=== PATIENT | female | born 1980 | race Caucasian/White ===

== ENCOUNTER 2019-09-08 14:26 | Outpatient (REF) | payer MEDICAID, SELFPAY ==
[2019-09-08 21:18] LABS: HGB 14.4 g/dL (12.0-15.5); Mean Corp. HGB Concentration 33.5 g/dL (32.0-36.0); Mean Corpuscular Hemoglobin 33.5 pg (27.0-33.0); Mean Platelet Volume 9.2 fL (8.0-11.0); Platelet Count 335 x1000/uL (130-400); RBC Distribution Width 12.5 % (11.7-14.6); White Blood Cell Count 8.33 k/cumm (4.4-10.8)
[2019-09-08 21:54] LABS: ALT 32 U/L (14-59); AST 13 U/L (15-37); Albumin 4.2 g/dL (3.4-5.0); Alkaline Phosphatase 53 U/L (46-116); BUN 10 mg/dL (7-18); Bilirubin, Total 0.5 mg/dL (0.2-1.0); CREATININE 0.66 mg/dL (0.55-1.02); Chloride 101 mmol/L (98-107); Glucose 81 mg/dL (74-106); Hemoglobin A1C 5.3 % (3.8-5.6); Sodium 136 mmol/L (136-145); TSH (W/Ref FT4) 0.72 uIU/mL (0.36-3.74); Total Protein 7.5 g/dL (6.4-8.2)
[2019-09-11 09:19] LABS: Folate 9.2 ng/mL (See Note)
[2019-09-11 09:20] LABS: Vitamin B12 334 pg/mL (211-911)
== END 2019-09-08 14:46 ==
LOC: NCHCN 14:26
PROVIDERS: PCP Nurse Practitioner Family; Visit Provider Family Medicine
DX: N92.0 Excessive and frequent menstruation with regular cycle (principal); N92.6 Irregular menstruation, unspecified; E66.9 Obesity, unspecified; D75.89 Other specified diseases of blood and blood-forming organs
CPT/HCPCS: 80053; 85027; 82607; 82746; 83036; 84443

== ENCOUNTER 2021-10-30 12:28 | Outpatient (REF) | payer MEDICAID, SELFPAY ==
--- NOTE | 2021-10-30 12:00 | SKI_PTH ---
PATIENT: Nely Sage LOC: [facility]#:[id number] AGE/SX: 40/F ROOM: RE10/30/[address]: Ligia Driver : 1980 BED: DIS: 10/30/2021 SPEC #: [id number] RECD: 10/31/21 12:40 STATUS: NASEEM MEDEROS #: [id number] DEBRA: 10/30/21 12:[address]: Ligia Lemus DEPT: Surgical Specimen RECD BY: Taylor Porras Tissues: 1 - SKIN BIOPSY(SHAVE/PUNCH) Procedures: SKIN LEVEL 4 Comments: [id number]
== END 2021-10-30 12:29 | disposition home or self-care (01) ==
LOC: NCHCN 12:28
PROVIDERS: PCP Nurse Practitioner Family; Visit Provider Nurse Practitioner Family
DX: L85.8 Other specified epidermal thickening (principal); L57.8 Other skin changes due to chronic exposure to nonionizing radiation
CPT/HCPCS: 88305

== ENCOUNTER 2023-12-02 12:16 | Outpatient (REF) | payer MEDICAID, SELFPAY ==
--- NOTE | 2023-12-02 13:30 | PAPFT_PTH ---
PATIENT: Nely Sage LOC: [facility]#:[id number] AGE/SX: 43/F ROOM: RE12/02/[address]: Ligia Driver : 1980 BED: DIS: 12/02/2023 SPEC #: [id number] RECD: 12/03/23 13:16 STATUS: NASEEM MEDEROS #: [id number] DEBRA: 12/02/23 13:[address]: Ligia Lemus DEPT: [facility] Cytology RECD BY: Taylor Porras Tissues: 1 - CX/ENDOCX FOR PAP SMEARS Procedures: PAP THIN PREP/UVM Screening HPV DNA PROBE Comments: [id number] (HPV 16 & 18/45)
--- OUTSIDE RECORDS SUMMARY | 2023-12-03 12:18 | XMS_ITS | Encounter Summary ---
Author Organization [facility] [place] [facility] Address [address] [place] [address] Care Team Providers Care Labor Delivery Specialist Name Role Phone Unavailable Primary Care Provider Unavailabl e Encounter Details Date Type Department Care Team (Late st Contact Info) Description 12/05/2009 Abstract [facility] Plastic, Reconstructive & Cosmetic Surgery - [address], [address] [place] [address] No Pcp, Md Social History Tobacco Use Types Packs/Day Years Used Date Smoking Tobacco: Never Assessed Sex and Gender Information Value Date Recorded Sex Assigned at Not on file Gender Identity Female 11/06/2022 12:47 EDT Sexual Orientation Not on file documented as of this encounter Plan of Treatment Not on file documented as of this encounter Visit Diagnoses Not on filedocumented in this encounter Historical Medications * This list may reflect changes made after this encounter. Medication Sig Dispensed Refills Start Date End Date FLUTICASONE/SALMETEROL (ADVAIR DISKUS INHL) Inhale as directed as needed. added in this encounter
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
--- OUTSIDE RECORDS SUMMARY | 2023-12-03 12:18 | XMS_ITS | Encounter Summary ---
Author Organization [facility] Address [address] [place] [address] Care Team Providers Care Barrel Stave Inspector Name Role Phone EricaGraham Sukumar BEEF SPECIALIST Primary Care Provider [phone] Encounter Details Date Type Department Care Team (Late st Contact Info) Description 08/28/2013 Historical Results Only [facility] - [facility] - Main [place] [address] [place] [address] Honey Hernández MD [address] [place] [address], [address] [place] [address] Social History Tobacco Use Types Packs/Day Years Used Date Smoking Tobacco: Never Assessed Sex and Gender Information Value Date Recorded Sex Assigned at Not on file Gender Identity Female 11/06/2022 12:47 EDT Sexual Orientation Not on file documented as of this encounter Plan of Treatment Not on file documented as of this encounter Procedures Procedure Name Priority Date/Time Associated Diagnosis Comments PAP TEST Routine 08/28/2013 13:12 EDT documented in this encounter Results * PAP TEST (08/28/2013 13:12 EDT) 08/28/2013 13:1 2 EDT 08/28/2013 13:12 EDT Narrative [facility] - 09/01/2013 16:20 EDT ----- ------- Name: KALYANI FITZPATRICK ?: 80 ?Age/Sex: 38/F ?Unit#: [id number] ? Loc: AGO ? Status: REG CLI ?? Reg Date: 08/28/13 ? Pt.Phone Number: ? ----- ------- Specimen: [id number] ?STATUS: SOUT ?Spec Date:08/28/13 ? Physician Copies: ?Edgar,Honey MD ?? Tissues: ? Cervical/Endo Pap ?Dinah Ventura CPT: 86043 ?? Units: ??1 ----- ------- ? CYTOLOGY DIAGNOSIS SPECIMEN ADEQUACY: ?Satisfactory for evaluation. Transformation zone component present. GENERAL CATEGORIZATION: ?Negative for Intraepithelial Lesion or Malignancy DESCRIPTIVE DIAGNOSIS: ? Negative for Intraepithelial Lesion or Malignancy. ----- ------- ?HPV DNA RESULTS ?? 08/28/13 1326 HPV DNA RESULT ??NEG ? Negative for HPV types 16, 18, 31, 33, 35, 39, 45, 51, 52, ? 56, 58, 59, 66, 68. ? Method: Cervista HPV HR (High Risk) DNA test. ----- ------- ORDER QUERIES: LMP: 06/28/13- ? Y Post ? N ??PREVIOUS ATYPICAL: N BCP/HRT? N Rad Rx? N IUD? N ??PAP PLUS HPV? Y ??REFLEX TO HR-HPV IF ASCUS N REFLEX TO HPV 16/18 IF HPV POS/PAP NEG N HPV REGARDLESS? N ??RFLX HPV IF LSIL ?? Signed Rasta Nair CT(ASCP) 09/01/13 By the signature above, the attending physician certifies that he/she has personally conducted a gross and/or microscopic examination of the described specimens and rendered or confirmed the above diagnosis. Test Performed by [facility], [address] [place] [address] Window Glass Cutter Off: Jamilah Castillo MD PHD ----- ------- Honey Hernández MD PATHOLOGY ORDERABLES [facility] documented in this encounter Visit Diagnoses Not on filedocumented in this encounter Care Teams Barrel Stave Inspector Relationship Specialty Start Date End Date Graham Maldonado FNP [address] [place] [address] DR CARVER [address] [place] [phone] PCP - General 11/05/13 10/10/21 documented as of this encounter
--- OUTSIDE RECORDS SUMMARY | 2023-12-03 12:18 | XMS_ITS | Encounter Summary ---
Author Organization [facility] Address [address] [place] [address] Care Team Providers Care Nib Assembler Name Role Phone Unavailable Primary Care Provider Unavailabl e Encounter Details Date Type Department Care Team (Late st Contact Info) Description 10/09/2012 Results Only [facility] Laboratory Services - [facility] [address] [place], [place] [address] Ambrose Zhu, DENTON [address] [place] [id number] Social History Tobacco Use Types Packs/Day Years Used Date Smoking Tobacco: Never Assessed Sex and Gender Information Value Date Recorded Sex Assigned at Not on file Gender Identity Female 11/06/2022 12:47 EDT Sexual Orientation Not on file documented as of this encounter Plan of Treatment Not on file documented as of this encounter Procedures Procedure Name Priority Date/Time Associated Diagnosis Comments PAP TEST- RESULT ONLY Routine 10/09/2012 0:00 EDT documented in this encounter Results * PAP TEST- RESULT ONLY (10/09/2012 0:00 EDT) Pathology Report: CYTOPATHOLOGY REPORT Reports generated via electronic interface contain original data; however they are lacking the format of the original report. Caution should be taken when reading/interpreti ng unformatted reports. Name: ? KALYANI FITZPATRICK ? Accession #: ? [id number] ? : ? 1980 (Age: 31) ??F ?Collect Date: ? 10/09/2012 ? Location: ? [facility] ? Receive Date: ? 10/13/2012 ? Provider: AMBROSE ZHU SUPPORT SERVICES MANAGER Copy to: ? Final Report SPECIMEN ADEQUACY ? Satisfactory for Evaluation - transformation zone component present GENERAL CATEGORIZATION ? Negative for Intraepithelial Lesion or Malignancy INTERPRETATION ? Shift in greg present suggestive of bacterial vaginosis. Last Menstrual Period: 09/26/12 Specimen/Source: ??Pap Test, Endocervix, ThinPrep Imaging System with manual evaluation Document reviewed and electronically signed by: ? ALESSANDRO Jeff(ASCP) ? Report ??Date: 10/17/2012 15:09 HPV with Pap Test ? Date Ordered: ? 10/17/2012 ? Status: ?? Signed Out ?Date Complete: ? 10/20/2012 ? By: ??System Interface ? Date Reported: ? 10/20/2012 ? Interpretation RESULT: Negative for HPV. No E6 or E7 mRNA is detected from HPV types 16,18,31,33,35, 39,45,51,52,56,58, 59,66, and 68 by reservoir caretaker mediated amplification. Comments Document reviewed and electronically signed by: ? System Interface ? Report date: 10/20/2012 By the signature above, the attending physician certifies that he/she has personally conducted a gross and/or microscopic examination of the described specimens and rendered or confirmed the above diagnosis. End of Report [facility] 10/09/2012 10/13/2012 Ambrose Zhu SUPPORT SERVICES MANAGER PATHOLOGY ORDERAB LES Performing Organization Address City/State/[facility] Co de Phone Number [facility] [address] [place] [address] documented in this encounter Visit Diagnoses Not on filedocumented in this encounter
--- OUTSIDE RECORDS SUMMARY | 2023-12-03 12:18 | XMS_ITS | Encounter Summary ---
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 Required Specialty Diagnoses / Procedures Referred By Contac t Referred To Contact Diagnoses Pelvic and perineal pain Left ovarian cyst Procedures US PELVIS TRANSABDOMINAL AND TRANSVAGINAL COMPLETE WITH LIMITED DOPPLER Matt Mcconnell MD [address] [place] [address] [facility] Radiology Referral ID Status Reason Start Date Expiration Date Visits Requested Visits Authorized [id number] Authorization Not Required 3 1 1 Reason for Visit * 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 Required Specialty Diagnoses / Procedures Referred By Contac t Referred To Contact Diagnoses Pelvic and perineal pain Left ovarian cyst Procedures US PELVIS TRANSABDOMINAL AND TRANSVAGINAL COMPLETE WITH LIMITED DOPPLER Matt Mcconnell MD [address] [place] [address] [facility] Radiology Referral ID Status Reason Start Date Expiration Date Visits Requested Visits Authorized [id number] Authorization Not Required 3 1 1 Encounter Details Date Type Department Care Team (Latest Contact Info) Description 04/02/2023 12:28 EST - 04/02/2023 23:59 EST Hospital [facility] - [facility] [address] [place] [address] [phone] Pelvic and perineal pain; Left ovarian cyst Discharge Disposition: Home or Self Care Social History Tobacco Use Types Packs/Day Years Used Date Smoking Tobacco: Every Day Cigarettes Passive Smoke Exposure: Never Smokeless Tobacco: Never Sex and Gender Information Value Date Recorded Sex Assigned at Not on file Gender Identity Female 11/06/2022 12:47 EDT Sexual Orientation Not on file documented as of this encounter Medications at Time of Discharge Medication Sig Dispensed Refills Start Date End Date albuterol 90 mcg/actuation inhaler Inhale 2 Puffs as directed every 4 hours. citalopram (CELEXA) 10 mg tablet Take 1 Tablet by mouth daily. fluticasone propionate (FLOVENT) 110 mcg/actuation inhaler Inhale 1 Puff as directed 2 times daily. FLUTICASONE/SALMETEROL (ADVAIR DISKUS INHL) Inhale as directed as needed. documented as of this encounter Discharge Disposition Disposition Code Departure Means Destination Home or Self Care documented in this encounter Plan of Treatment Not on file documented as of this encounter Procedures Procedure Name Priority Date/Time Associated Diagnosis Comments US PELVIS TRANSABDOMINAL AND TRANSVAGINAL COMPLETE WITH LIMITED DUPLEX STAT 04/02/2023 13:14 EST Pelvic and perineal pain Left ovarian cyst documented in this encounter Results * US PELVIS TRANSABDOMINAL AND TRANSVAGINAL COMPLETE WITH LIMITED DOPPLER (04/02/2023 13:14 EST) Anatomical Region Laterality Modality Pelvis, Body Ultrasound 04/02/2023 13:2 4 EST Impressions 04/02/2023 13:24 EST 1. Left adnexal cyst, 3.3 cm long axis, likely physiologic. 2. No concerning adnexal mass, no ovarian torsion. 3. Small uterine fibroid. [id number] Narrative 04/02/2023 13:24 EST US PELVIS TRANSABDOMINAL AND TRANSVAGINAL COMPLETE WITH LIMITED DOPPLER ??04/02/2023 1:00 PM SIGNS AND SYMPTOMS/COMMENTS: R/O Torsion; ct abd/pel showed 3cm left ovarian cyst;R10.2:Pelvic and perineal pain;N83.202:Left ovarian cyst COMPARISON: No prior imaging at this institution, no outside imaging made available at time of dictation.. GRAYSCALE: Technique: Grayscale ultrasound of the pelvis was performed, first transabdominally, and then transvaginally. Findings: LMP: Not listed Uterus: The anteverted uterus measures 9.6 x 4.1 x 6.6 cm in size. Small intramural hypoechoic nodule anterior body, video series #170, frame #76, approximately 1 cm. Endometrium: The hyperechoic endometrium measures 1.1 cm in double endometrial stripe thickness, which is within normal limits, measurement not including trace fluid within endometrial cavity, see sagittal series 170, frame 58... Right ovary: The right ovary measures 4.0 x 1.8 x 2.5 cm in size, for an estimated right ovarian volume of 9 mL. Scattered small follicles, no adnexal mass. Left ovary: The left ovary measures 5.2 x 2.0 x 4.2 cm in size, for an estimated left ovarian volume of 22.5 mL. There is a anechoic cyst measuring 3.3 x 2.4 x 2.4 cm Cervix: Small nabothian cysts. Free fluid: Other Findings: None. DOPPLER: Indication for Doppler: Rule out pelvic pathology Technique: Color and spectral Doppler ultrasound of the pelvis was performed. Findings: Right ovary: Arterial and venous Doppler waveforms and color flow are present in the right ovary. Left ovary: Arterial and venous Doppler waveforms and color flow are present in the left ovary. Procedure Note Pritesh Garrison MD - 04/02/2023 US PELVIS TRANSABDOMINAL AND TRANSVAGINAL COMPLETE WITH LIMITED [id number]/02/2023 1:00 PM SIGNS AND SYMPTOMS/COMMENTS: R/O Torsion; ct abd/pel showed 3cm leftovarian cyst;R10.2:Pelvic and perineal pain;N83.202:Left ovarian cyst COMPARISON: No prior imaging at this institution, no outside imaging madeavailable at time of dictation.. GRAYSCALE: Technique: Grayscale ultrasound of the pelvis was performed, firsttransabdominally, and then transvaginally. Findings: LMP: Not listed Uterus: The anteverted uterus measures 9.6 x 4.1 x 6.6 cm in size. Smallintramural hypoechoic nodule anterior body, video series #170, frame #76,approximately 1 cm. Endometrium: The hyperechoic endometrium measures 1.1 cm in doubleendometrial stripe thickness, which is within normal limits, measurementnot including trace fluid within endometrial cavity, see sagittal [id number], frame 58... Right ovary: The right ovary measures 4.0 x 1.8 x 2.5 cm in size, for anestimated right ovarian volume of 9 mL. Scattered small follicles, noadnexal mass. Left ovary: The left ovary measures 5.2 x 2.0 x 4.2 cm in size, for anestimated left ovarian volume of 22.5 mL. There is a anechoic cystmeasuring 3.3 x 2.4 x 2.4 cm Cervix: Small nabothian cysts. Free fluid: Other Findings: None. DOPPLER: Indication for Doppler: Rule out pelvic pathology Technique: Color and spectral Doppler ultrasound of the pelvis wasperformed. Findings: Right ovary: Arterial and venous Doppler waveforms and color flow arepresent in the right ovary. Left ovary: Arterial and venous Doppler waveforms and color flow arepresent in the left ovary. IMPRESSION 1. Left adnexal cyst, 3.3 cm long axis, likely physiologic. 2. No concerning adnexal mass, no ovarian torsion. 3. Small uterine fibroid. [id number] Matt Mcconnell MD IMG US OB ORDERABLES documented in this encounter Visit Diagnoses Diagnosis Pelvic and perineal pain Unspecified symptom associated with female genital organs Left ovarian cyst Other and unspecified ovarian cyst documented in this encounter Care Teams Photographer Assistant Relationship Specialty Start Date End Date Ligia Lemus NP [address] [place] [address] PCP - General 11/06/22 documented as of this encounter
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
--- OUTSIDE RECORDS SUMMARY | 2023-12-03 12:18 | XMS_ITS | Encounter Summary ---
Author Organization [facility] Address [address] [place] [address] Care Team Providers Care Academic Support Director Name Role Phone Ligia Lemus ENGINE RESEARCH ENGINEER Primary Care Provider [phone] Ligia Lemus ENGINE RESEARCH ENGINEER Primary Care Provider [phone] Encounter Details Date Type Department Care Team (Late st Contact Info) Description 10/31/2021 Lab Requisition [facility] Pathology & Laboratory Medicine - [facility] [address] [place] [address] Ligia Lemus, ENGINE RESEARCH ENGINEER [address] [place], [place] [id number] Encounter for other general examination Social History Tobacco Use Types Packs/Day Years Used Date Smoking Tobacco: Never Assessed Sex and Gender Information Value Date Recorded Sex Assigned at Not on file Gender Identity Female 11/06/2022 12:47 EDT Sexual Orientation Not on file documented as of this encounter Plan of Treatment Not on file documented as of this encounter Procedures Procedure Name Priority Date/Time Associated Diagnosis Comments SURGICAL PATHOLOGY Today 10/30/2021 12 :00 EDT Encounter for other general examination documented in this encounter Results * SURGICAL PATHOLOGY (10/30/2021 12:00 EDT) Note to Patient The following pathology results have been interpreted by your pathologist and may be available to you before your health provider has had the opportunity to review them. Please allow time for your provider to receive these results and explore management options, if applicable. 11/02/2021 7:59 [facility] Final Diagnosis A. SKIN OF CHRISTIAN, RIGHT, PUNCH BIOPSY: - Epidermal hyperplasia with parakeratosis. See comment. 11/02/2021 7:59 [facility] Diagnosis Comment Findings are relatively nonspecific, despite multiple deeper levels. There is no evidence of malignancy. Present on deeper sections is epidermal hyperplasia with overlying parakeratosis which extends to the biopsy edge. The findings raise an irritated keratosis as a consideration, but fully developed features are not noted. Clinical correlation is recommended. 11/02/2021 7:59 [facility] Attestation By the signature below, the attending physician certifies that they have 1) personally conducted a gross and/or microscopic examination of the described specimen(s), and/or personally interpreted the results of laboratory testing of the described specimen(s), and 2) personally rendered or confirmed the above diagnosis. 11/02/2021 7:59 [facility] at 0759 Clinical History Nonhealing lesion R muslim; R/O SCC 11/02/2021 7:59 [facility] Gross Description A. Received in formalin labelled with proper patient identification (initials B, J) and facial right muslim is a teresa-white skin punch biopsy measuring 0.2 cm in diameter and excised to a depth of 0.2 cm. Submitted intact in A1. SERJIO NAZARIO(ASCP) 10/31/2021 19:32 11/02/2021 7:59 T [facility] Performing Lab [facility] 11/02/2021 7:59 T [facility] Scanned Images 11/02/2021 7:59 [facility] Tissue TISSUE SPECIMEN FROM SKIN / Unknown 10/30/2021 12:00 EDT 10/31/2021 16:59 EDT Ligia Lemus NP PATHOLOGY ORDERABLES [facility] [address] [place] [address] documented in this encounter Visit Diagnoses Diagnosis Encounter for other general examination documented in this encounter Care Teams Academic Support Director Relationship Specialty Start Date End Date Ligia Lemus NP [address] [place] [address] PCP - General 10/11/21 11/05/22 Ligia Lemus NP [address] [place] [address] PCP - General 11/06/22 documented as of this encounter
--- OUTSIDE RECORDS SUMMARY | 2023-12-03 12:18 | XMS_ITS | Encounter Summary ---
Author Organization [facility] Address [address] [place] [address] Care Team Providers Care Pulp Piler Name Role Phone Unavailable Primary Care Provider Unavailabl e Encounter Details Date Type Department Care Team (Late st Contact Info) Description 09/03/2001 14:47 EDT Hospital Encounter [facility] - Other [address] [place] [address] Graham Tomas, ELECTRIC MULE DRIVER [address] [place] [address] DR CARVER [address] [place] [phone] Unknown, Provider, Social History Tobacco Use Types Packs/Day Years [...] Procedure Name Priority Date/Time Associated Diagnosis Comments CYTOPATHOLOGY Routine 09/03/2001 0:00 EDT documented in this encounter Results * CYTOPATHOLOGY (09/03/2001 0:00 EDT) Pathology Report: CYTOPATHOLOGY REPORT Reports generated via electronic interface contain original data; however they are lacking the format of the original report. Caution should be taken when reading/interpreti ng unformatted reports. Name: ? KALYANI FITZPATRICK ? Accession #: ? [id number] : ? 1980 (Age: 20) ??F ?Collect Date: ? 09/03/2001 Location: ? [facility] ? Receive Date: ? 09/05/2001 Provider: ?GRAHAM TOMAS ELECTRIC MULE DRIVER Copy to: ? Specimen/Source: ?Conventional Pap Test, Endocervix Last Menstrual Period: ? 08/20/01 Hormonal/Contracep tive Status: ? Control Pills ? SPECIMEN ADEQUACY ? Satisfactory for Evaluation - transformation zone component present GENERAL CATEGORIZATION ? Negative for Intraepithelial Lesion or Malignancy ? Document reviewed and electronically signed by: ? Cayden Ortez, ALESSANDRO(ASCP) ? Report Date: ??09/10/2001 14:05 End of Report [facility] 09/03/2001 09/05/2001 Graham Tomas ELECTRIC MULE DRIVER PATHOLOGY ORDERABLES [facility] [address] [place] [address] documented in this encounter Visit Diagnoses Not on filedocumented in this encounter
--- OUTSIDE RECORDS SUMMARY | 2023-12-03 12:18 | XMS_ITS ---
Author Organization Unknown Address [address] [place] [address] [phone] Phone Care Team Providers Care Jacker Name Role Phone BO MONTANA Registered Nurse Unavailable VIRGINIE Burroughs Attending Unavailable EAMON Magdaleno [facility] Unavailable CARLITOS Simeon Primary Unavailable UNLISTED PROVIDER - REQUESTED Xhandoff Un available Results XR KNEE 4V RT* - Completed: 10/26/2021 10:52 LOINC: RIGHT KNEE - 4 VIEWS:There i s a joint effusion. No fracture is identified. The joint spaces are well maintained. There are no underlying degenerative changes. IMPRESSION:Joint effusion. Dictated by: CEO RITA RAMSAY MD Transcribed by: SAMY 10/26/21/11:34 D , October 26, 2021 11:11:37 AM [id number] Electronically Reviewed and Signed By: RITA RAMSAY MD 10/26/21 12:31 Copy for: 185 HEALTH INFORMATION MGMT DISCHARGED Social History Type Status Start Date End Date Code Code Syst em Smoking History Current every day smoker [address] Sex Female Vital Signs Vital Sign Value Unit Warren Value Warren Unit Date/Time Recent/Initial? Code Code System Body Mass Index 27.20 kg/m2 10/26/2021 10:23 Initial 23508 -5 LOINC Systolic Blood Pressure 129 mm[Hg] 10/26/2021 10:23 Initial 8480- 6 LOINC Diastolic Blood Pressure 80 mm[Hg] 10/26/2021 10:23 Initial 8462- 4 LOINC Body Surface Area 2.10 m2 10/26/2021 10:23 Initial 3140- 1 LOINC Height 180.340 0 cm 71.00 in 10/26/2021 10:23 Initial 8302- 2 LOINC O2 Saturation 100 % 2021 11:25 Most Recent 42353 -5 LOINC O2 Saturation 98 % 2021 10:23 Initial 33200 -5 LOINC Pulse 60.0 /min 10/26/2021 11:25 Most Recent 8867- 4 LOINC Pulse 76.0 /min 10/26/2021 10:23 Initial 8867- 4 LOINC Respiration 18 /min 10/27/19 11:25 Most Recent 9279- 1 LOINC Respiration 18 /min 10/27/19 10:23 Initial 9279- 1 LOINC Temperature 37.1 Hawa 98.8 F 10/27/19 10:23 Initial 8310- 5 LOINC Weight 88.45 kg 195.00 lbs 10/26/2021 10:23 Initial 58752 -7 LOINC Medications Medication Start Date End Date Route Frequency Dose Code Code System Medication Instructions Home Meds Naproxen 500MG Oral Tablet 03/30/2023 Unknown ORAL TWICE A DAY 1 TABLET 19790516 RxNorm TAKE 1 TABLET ORAL TWICE A DAY Hospital Discharge Instructions Should you have any questions prior to discharge, please contact a member of your healthcare team. If you have left the hospital and have any questions, please contact your primary care physician. Reason For Referral No Data Found Problems Problem Start Date Resolved Date Status Code Code System ASTHMA 03/30/2023 resolved 320399820 SNOMED-CT Allergies and Adverse Reactions Allergy Substance Reaction Severity Start Date Concern Status Code Code System PENICILLINS (CLASS) Hives (SNOMED-CT: 279128082) Moderate Active 3055773 SNOMED-CT AMOXICILLIN Hives (SNOMED-CT: 851267542) Moderate Active 723 RxNorm Plan of Treatment US PELVIC / TV 06/12/2023 Encounters Encounter Diagnosis Start Date Code Code Sys tem Pain in right knee 10/26/2021 SNOMED-CT Personal Care Team Section Performer Name Performer Role Active Date Inactive Da te
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
--- OUTSIDE RECORDS SUMMARY | 2023-12-03 12:18 | XMS_ITS | Encounter Summary ---
Author Organization [facility] Address [address] [place] [address] Care Team Providers Care Manager Outpatient Name Role Phone Unavailable Primary Care Provider Unavailabl e Encounter Details Date Type Department Care Team (Latest Contact Info) Description 11/03/2013 8:03 EDT - 11/03/2013 23:59 EDT Hospital Encounter [facility] [address] [place] [address] Unknown, Provider, Discharge Disposition: Home or Self Care Social [...] Code Departure Means Destination Home or Self Long Term documented in this encounter Plan of Treatment Not on file documented as of this encounter Visit Diagnoses Not on filedocumented in this encounter
--- OUTSIDE RECORDS SUMMARY | 2023-12-03 12:18 | XMS_ITS | Encounter Summary ---
Author Organization [facility] Address [address] [place] [address] Care Team Providers Care Glove Factory Sewer Name Role Phone Ligia Lemus ASSOCIATE DIRECTOR QA Primary Care Provider [phone] Reason for Visit * Reason Comments New Patient Visit New patient visit, s kin lesion on right pentecostalism. * Consult (3 - 10 Business Days) - Authorization Not Required Specialty Diagnoses / Procedures [facility] Referred To Contact Diagnoses Neoplasm of uncertain behavior of skin Lgiia Lemus, ASSOCIATE DIRECTOR QA [address] [place] [address] [facility] [address] [place] [address] Referral ID Status Reason Start Date Expiration Date Visits Requested Visits Authorized [id number] Authorization Not Required 1 1 Encounter Details Date Type Department Care Team (Late st Contact Info) Description 11/07/2022 14:10 EDT Office Visit [facility] Dermatology 3[address] [id number] Romulo Saenz PA-C [address] [place] [address], [address] [place] [address] Skin picking habit (Primary Dx); Diffuse photodamage of skin Social History Tobacco Use Types Packs/Day Years Used Date Smoking Tobacco: Every Day Cigarettes Passive Smoke Exposure: Never Smokeless Tobacco: Never Tobacco Cessation:Ready to Q uit: Not Asked; Counseling Given: Not Answered Sex and Gender Information Value Date Recorded Sex Assigned at Not on file Gender Identity Female 11/06/2022 12:47 EDT Sexual Orientation Not on file documented as of this encounter Progress Notes * Romulo Saenz PA-C - 11/07/2022 1410 EDT Dermatology Outpatient Visit Note Chief Complaint Patient presents with ??? New Patient Visit New patient visit, skin lesion on right pentecostalism. Dermatologic History: No specialty comments available. Last Dermatology office visit: NPV SUBJECTIVE Ms. Sage is a 41 y.o. female who presents for new evaluation and treatment for a spot of concern on right pentecostalism. Cutaneous concerns listed below. ??? She reports a biopsy of the area was done last year, but a scab is still present. 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 She does not use sun protection She is otherwise feeling well and has no other cutaneous concerns today. MEDICATION LIST She has a current medication list which includes the following prescription(s): albuterol, citalopram, fluticasone propionate, and fluticasone propion/salmeterol. ALLERGY LIST She is allergic to amoxicillin. OBJECTIVE Ms. Sage is a well appearing and in no acute distress female, with a normal affect, sitting on the examination table. She has medium skin, and medium brown hair. Cutaneous focused exam of the face, back, chest, arms, abdomen, legs was performed. The examination was significant for the following: - right pentecostalism: excoriated papule - photo-distribution: diffuse actinic injury, darkly tanned skin and mottled pigmentation ASSESSMENT/PLAN Skin picking habit Education and anticipatory guidance provided. Discussed benign biopsy results from 10/30/21 c/w epidermal hyperplasia with parakeratosis. Continued manipulation impeding wound healing. Emphasized importance of avoiding skin picking. Cover with Vaseline and bandage. Diffuse photodamage of skin The nature of sun-induced photo-aging and skin cancers is discussed. Sun avoidance, protective clothing, and the use of OTC broad spectrum 50+-SPF sunscreens with both UVA and UVB coverage is advised. Observe closely for skin damage/changes, and call if such occurs. She will f/u as planned or in the interim should problems arise. Return if symptoms worsen or fail to improve. The attending physician was available for this visit. Romulo Saenz PA-C 11/07/2022 15:10 documented in this encounter Plan of Treatment Not on file documented as of this encounter Visit Diagnoses Diagnosis Skin picking habit- Primary Other and unspecified special symptom or syndrome, not elsewhere classified Diffuse photodamage of skin Other chronic dermatitis due to solar radiation documented in this encounter Historical Medications * This list may reflect changes made after this encounter. Medication Sig Dispensed Refills Start Date End Date citalopram (CELEXA) 10 mg tablet Take 1 Tablet by mouth daily. albuterol 90 mcg/actuation inhaler Inhale 2 Puffs as directed every 4 hours. fluticasone propionate (FLOVENT) 110 mcg/actuation inhaler Inhale 1 Puff as directed 2 times daily. added in this encounter Care Teams Glove Factory Sewer Relationship Specialty Start Date End Date Ligia Lemus NP [address] [place] [address] PCP - General 11/06/22 documented as of this encounter
--- OUTSIDE RECORDS SUMMARY | 2023-12-03 12:18 | XMS_ITS | Referral Summary ---
Author Organization [facility] Address [address] [place] [address] Care Team Providers Care Culinary Arts Instructor Name Role Phone Ligia Lemus GREASE RENDERER Primary Care Provider Allergies Active Allergy Reactions Criticality Noted Date [...] Problem Noted Date Diagnosed Date Asthma 01/11/2003 Social History Tobacco Use Types Packs/Day Years Used Date Smoking Tobacco: Every Day Cigarettes Passive Smoke Exposure: Never Smokeless Tobacco: Never Tobacco Cessation:Ready to Q uit: Not Asked; Counseling Given: Not Answered Sex and Gender Information Value Date Recorded Sex Assigned at Not on file Gender Identity Female 11/06/2022 12:47 EDT Sexual Orientation Not on file Plan of Treatment Not on file Care Teams Culinary Arts Instructor Relationship Specialty Start Date End Date Ligia Lemus NP [address] [place] [address] PCP - General 11/06/22
--- OUTSIDE RECORDS SUMMARY | 2023-12-03 12:18 | XMS_ITS | Encounter Summary ---
Author Organization [facility] Address [address] [place] [address] Care Team Providers Care Food And Beverage Outlets Manager Name Role Phone Graham Maldonado NET DEVELOPER SOFTWARE ENGINEER C Primary Care Provider [phone] Ligia Lemus PARTY PLAN SELLING DISTRIBUTOR Primary Care Provider [phone] Ligia Lemus PARTY PLAN SELLING DISTRIBUTOR Primary Care Provider [phone] Encounter Details Date Type Department Care Team (Late st Contact Info) Description 09/10/2019 Lab Requisition [facility] Pathology & Laboratory Medicine - [facility] [address], [place] [address] Outr Resulting Lab, Provider Social History Tobacco Use Types Packs/Day Years Used Date Smoking Tobacco: Never Assessed Sex and Gender Information Value Date Recorded Sex Assigned at Not on file Gender Identity Female 11/06/2022 12:47 EDT Sexual Orientation Not on file documented as of this encounter Plan of Treatment Not on file documented as of this encounter Procedures Procedure Name Priority Date/Time Associated Diagnosis Comments FOLATE Routine 09/08/2019 10:40 EDT VITAMIN B12 Routine 09/08/2019 10:40 EDT documented in this encounter Results * FOLATE (09/08/2019 10:40 EDT) Folate 9.2 See Note ng/mL 09/11/2019 9:14 EDT [facility] Comment: Reference Ranges for Folate: Deficient: ?< 3.4 ng/mL Indeterminate: ??3.4 - 5.4 ng/mL Normal: ? > 5.4 ng/mL The results of this assay can be falsely elevated due to the consumption of Biotin. Blood VENOUS BLOOD / Unknown 09/08/2019 10:40 EDT 09/10/2019 15:59 EDT Provider Outr Resulting Lab CHEMISTRY & BLOOD GAS ORDERABLES Performing Organization Address City/[facility]/ZIP Co de Phone Number [facility] [address] [place] [address] * VITAMIN B12 (09/08/2019 10:40 EDT) Vitamin B12 334 211 - 911 pg/mL 09/11/2019 9:16 EDT [facility] Blood VENOUS BLOOD / Unknown 09/08/2019 10:40 EDT 09/10/2019 15:59 EDT Provider Outr Resulting Lab CHEMISTRY & BLOOD GAS ORDERABLES Performing Organization Address City/[facility] Co de Phone Number [facility] [address] [place] [address] documented in this encounter Visit Diagnoses Not on filedocumented in this encounter Care Teams Food And Beverage Outlets Manager Relationship Specialty Start Date End Date Graham Maldonado FNP [address] [place] [phone] PCP - General 11/05/13 10/10/21 Ligia Lemus PARTY PLAN SELLING DISTRIBUTOR [address] [place] [address] PCP - General 10/11/21 11/05/22 Ligia Lemus NP [address] [place] [address] PCP - General 11/06/22 documented as of this encounter
--- OUTSIDE RECORDS SUMMARY | 2023-12-03 12:19 | XMS_ITS ---
Author Organization Unknown Address [address] [place] [phone] Phone Care Team Providers Care Seo Marketing Specialist Name Role Phone MARY KAY VELEZ Registered Nurse Unavailable SAMREEN Magdaleno Attending Unavailable LANIE Burrough[facility] Unavailable CARLITOS Simeon Primary Unavailable UNLISTED PROVIDER - REQUESTED Xhandoff Un available Results COMPREHENSIVE METABOLIC PANE L (CMP) - Collect Date/Time: 03/30/2023 07:50 [facility] ID: [id number] [address] [place], [place], [address] LOINC: [address]41-6 Test Value Unit Reference Range Code Code System Flag GLUCOSE 103 mg/dL L=70 H=116 2345-7 LOINC BUN 10 mg/dL L=6 H=25 3094-0 LOINC CREATININE 0.70 mg/dL L=0.51 H=0.95 2160-0 LOINC SODIUM SERUM 138 mmol/L L=136 H=145 2951-2 LOINC POTASSIUM SERUM 4.4 mmol/L L=3.4 H=5.2 2823-3 LOINC CHLORIDE SERUM 104 mmol/L L=96 H=110 2075-0 LOINC CARBON DIOXIDE (CO2) 27 mmol/L L=22 H=34 2028-9 LOINC ANION GAP 7.3 mmol/L 24484-3 LOINC CALCIUM SERUM 8.6 mg/dL L=8.2 H=10.2 78597-6 LOINC BILIRUBIN TOTAL 0.3 mg/dL L=0.0 H=1.3 1975-2 LOINC ALK. PHOS. 49 U/L L=46 H=116 6768-6 LOINC SGOT (AST) 21 U/L L=15 H=37 1920-8 LOINC SGPT (ALT) 44 U/L L=12 H=78 1742-6 LOINC TOTAL PROTEIN 7.1 gm/dL L=6.0 H=8.0 2885-2 LOINC ALBUMIN 3.6 gm/dL L=3.4 H=5.0 1751-7 LOINC AGE 42 years eGFR (non-Afr.Amer.) 92 mL/min 24549-4 LOINC eGFR (Afr-Ukrainian) 111 mL/min 28390-1 LOINC CBC W/ DIFFERENTIAL* - Colle ct Date/Time: 03/30/2023 07:50 [facility] ID: [id number] [address] [place], [place], [address] LOINC: 24227-9 Test Value Unit Reference Range Code Code System Flag WBC 7.20 th/cmm L=5.00 H=10.00 6690-2 LOINC NEUT % 62.8 % L=40.0 H=80.0 LYMPH % 24.3 % L=10.0 H=50.0 MONO % 8.2 % L=2.0 H=12.0 63097-1 LOINC EOS % 3.3 % L=0.0 H=8.0 BASO % 0.6 % L=0.0 H=3.0 IG % 0.8 % L=0.0 H=1.1 2514-8 LOINC NRBC % 0.0 % L=0.0 H=0.0 21429-6 LOINC NEUT abs count 4.5 th/cmm L=1.6 H=8.4 751-8 LOINC LYMPH abs count 1.8 th/cmm L=1.5 H=4.0 731-0 LOINC MONO abs count 0.6 th/cmm L=0.2 H=1.0 742-7 LOINC EOS abs count 0.2 th/cmm L=0.0 H=0.5 711-2 LOINC BASO abs count 0.0 th/cmm L=0.0 H=0.2 704-7 LOINC IG abs count 0.1 th/cmm L=0.0 H=0.1 44914-0 LOINC NRBC abs count 0.0 mil/cmm L=0.0 H=0.0 34055-4 LOINC RBC 4.03 mil/cmm L=3.90 H=5.40 789-8 LOINC HEMOGLOBIN 13.4 gm/dL L=12.0 H=16.0 718-7 LOINC HEMATOCRIT 40 % L=37 H=47 4544-3 LOINC MCV 100 fL L=82 H=92 787-2 LOINC H MCH 33.3 pg L=27.0 H=31.0 785-6 LOINC H MCHC 33.2 % L=32.0 H=36.0 786-4 LOINC RDW-SD 45.1 fL L=39.0 H=49.0 788-0 LOINC PLATELET COUNT 312 th/cmm L=150 H=450 777-3 LOINC TEST QUAL (URINE) - Collect Date/Time: 03/30/2023 07:50 [facility] ID: [id number] [address] [place] [address], [address] LOINC: 2106-3 Test Value Unit Reference Range Code Code System Flag TEST NEGATIVE 6-3 LOINC URINALYSIS WITH REFLEX CULT IF POSITIVE* - Collect Date/Time: 03/30/2023 07:50 [facility] ID: [id number] [address] [place] [address], [address] LOINC: 23507-4 Test Value Unit Reference Range Code Code System Flag COLLECTION MODE: CLEAN CATCH 51091-4 LOINC Color YELLOW yellow 5778-6 LOINC Appearance CLEAR clear 5767-9 LOINC Glucose urine NEGATIVE negative mg/dl 89582-1 LOINC Bilirubin NEGATIVE negative 5770-3 LOINC Ketones NEGATIVE negative mg/dl 2514-8 LOINC Spec gravity 1.020 1.003 - 1.030 5811-5 LOINC pH urine 6.0 5.0 - 7.0 2756-5 LOINC Protein NEGATIVE negative mg/dl 35273-9 LOINC Urobilinogen 0.2 <or= 1 EU/dl 86593-3 LOINC Nitrite. NEGATIVE negative 5802-4 LOINC Blood TRACE-IN negative 5794-3 LOINC A Leukocytes. NEGATIVE negative MICROSCOPIC INDICATED WBCs. 0-5 0-5 / hpf 61508-2 LOINC RBCs 0-5 0-5 / hpf 14587-1 LOINC Epith cells 0-5 0-5 / hpf 22222-7 LOINC Cell types squamous Crystals none none Bacteria none none Mucus present none 8247-9 LOINC Casts none none /lpf 26411-9 LOINC Other 35095-[address] ABD PELVIS W IV CONTRAST ONLY - Completed: 03/30/2023 10:38 [facility] [place], [place] [address] PACS MANDREL CLEANER REPORT Patient Name: KALYANI VELOZ MRN: Sex: : Age: [id number] F 1980 42 Account: Accession: Admit: StayType: [id number] 03/30/2023 E/R Ordered: Order ID: Submitted: Ordering Provider: 03/30/2023 09:05 [id number] NIKOLE OREILLY Completed: Technologist: Resulted: 03/30/2023 10:38 [facility] 03/31/2023 14:37 Study Description: CT ABD PELVIS W IV CONTRAST ONLY Reason for Study: Pain Imaging Protocol: Axial computed tomography images with coronal and sagittal reformatted images were created and reviewed. Contrast Material: Intravenous: Omnipaque 350 Contrast volume: 100 mL Comparison: [address] Pelvic ultrasound January 29 FINDINGS: Lung Bases: Normal where visualized. Liver: Normal density. No suspicious measurable mass. Gallbladder and Biliary Tract: No radiodense calculus.No biliary dilation. Pancreas: Normal density, no abnormal calcifications or inflammatory process. Spleen: Normal. Adrenals: No masses seen. Kidneys: Normal size, contour and axis. No radiodense stones. No obstructive uropathy. No suspicious masses seen. Abdominal Aorta: Abdominal portion non-dilated. Bowel: No obstruction. No bowel wall thickening. Appendix is unremarkable. Peritoneal Cavity: No ascites or focal collection. No mesenteric inflammatory response. No free air. Lymph Nodes: Within normal limits. Bones: Left-sided L5 spondylolysis. No spondylolisthesis. Soft Tissues: Unremarkable. Bladder: Symmetric distention. No gross wall thickening. Reproductive Organs: Unremarkable as visualized. Dominant follicle left ovary. IMPRESSION: No acute abnormality is identified in the abdomen and pelvis. Radiation Optimization: All CT scans at this facility use at least one of these dose optimization techniques: automated exposure control; mA and/or kV adjustment per patient size (includes targeted exams where dose is matched to clinical indication); or iterative reconstruction. Report Digitally Signed by Shawna Musa on 03/31/2023 02:37 PM EST Social History Type Status Start Date End Date Code Code Syst em Smoking History Current every day smoker [id number] Sex Female Vital Signs Vital Sign Value Unit [place] Value [place] Unit Date/Time Recent/Initial? Code Code System Body Mass Index 30.68 kg/m2 03/30/2023 07:28 Initial 16661 -5 LOINC Systolic Blood Pressure 124 mm[Hg] 03/30/2023 11:35 Most Recent 8480- 6 LOINC Diastolic Blood Pressure 67 mm[Hg] 03/30/2023 11:35 Most Recent 8462- 4 LOINC Systolic Blood Pressure 152 mm[Hg] 03/30/2023 07:28 Initial 8480- 6 LOINC Diastolic Blood Pressure 82 mm[Hg] 03/30/2023 07:28 Initial 8462- 4 LOINC Body Surface Area 2.24 m2 03/30/2023 07:28 Initial 3140- 1 LOINC Height 180.340 0 cm 71.00 in 03/30/2023 07:28 Initial 8302- 2 LOINC O2 Saturation 98 % 2022 11:35 Most Recent 70750 -5 LOINC O2 Saturation 97 % 11/18/ 2023 07:28 Initial 01394 -5 LOINC Pulse 65.0 /min 03/30/2023 11:35 Most Recent 8867- 4 LOINC Pulse 85.0 /min 03/30/2023 07:28 Initial 8867- 4 LOINC Respiration 18 /min 03/30/20 23 07:28 Initial 9279- 1 LOINC Temperature 36.5 Hawa 97.7 F 03/30/20 11:35 Most Recent 8310- 5 LOINC Temperature 36.6 Hawa 97.9 F 03/30/20 07:28 Initial 8310- 5 LOINC Weight 99.79 kg 220.00 lbs 03/30/2023 07:28 Initial 22944 -7 LOINC Medications Medication Start Date End [...] Status Code Code System ASTHMA 03/30/2023 resolved 926176442 SNOMED-CT Allergies and Adverse Reactions Allergy Substance Reaction Severity Start Date Concern Status Code Code System PENICILLINS (CLASS) Hives (SNOMED-CT: 777775264) Moderate Active 6815340 SNOMED-CT AMOXICILLIN Hives (SNOMED-CT: 266578579) Moderate Active 723 RxNorm Plan of Treatment US PELVIC / TV 06/12/2023 Encounters Encounter Diagnosis Start Date Code Code Sys tem Unspecified ovarian cyst, left side 03/30/2023 SNOMED-CT Personal Care Team Section Performer Name Performer Role Active Date Inactive Da te
--- OUTSIDE RECORDS SUMMARY | 2023-12-03 12:19 | XMS_ITS ---
Author Organization Unknown Address [address] [place] [phone] Phone Care Team Providers Care Trench Shovel Operator Name Role Phone JENNIFER HERNANDEZ Heike Attending Unavailable CARLITOS Simeon Primary Unavailable Social History Type Status Start Date End Date Code Code Syst em Smoking History Current every day smoker [address] Sex Female Medications Medication Start Date End Date Route [...] Status Code Code System ASTHMA 03/30/2023 resolved 936689660 SNOMED-CT Allergies and Adverse Reactions Allergy Substance Reaction Severity Start Date Concern Status Code Code System PENICILLINS (CLASS) Hives (SNOMED-CT: 131736583) Moderate Active 1838020 SNOMED-CT AMOXICILLIN Hives (SNOMED-CT: 363533615) Moderate Active 723 RxNorm Plan of Treatment US PELVIC / TV 06/12/2023 Encounters Encounter Diagnosis Start Date Code Code Sys tem Snoring 03/08/2023 97067936 SNOMED-CT Personal Care Team Section Performer Name Performer Role Active Date Inactive Da te
--- OUTSIDE RECORDS SUMMARY | 2023-12-03 12:20 | XMS_ITS ---
Author Organization Unknown Address [address] [place] [address] [phone] Phone Care Team Providers Care Cancer Genetics Assistant Name Role Phone JENNIFER HERNANDEZ Heike Attending Unavailable CARLITOS Simeon Primary Unavailable Social History Type Status Start Date End Date Code Code Syst em Smoking History Current every day smoker [address] Sex Female Medications Medication Start [...] Status Code Code System ASTHMA 03/30/2023 resolved 276961525 SNOMED-CT Allergies and Adverse Reactions Allergy Substance Reaction Severity Start Date Concern Status Code Code System PENICILLINS (CLASS) Hives (SNOMED-CT: 723384823) Moderate Active 9722895 SNOMED-CT AMOXICILLIN Hives (SNOMED-CT: 502082195) Moderate Active 723 RxNorm Plan of Treatment US PELVIC / TV 06/12/2023 Encounters Encounter Diagnosis Start Date Code Code Sys tem Sleep apnea 05/29/2023 15978407 SNOMED-CT Personal Care Team Section Performer Name Performer Role Active Date Inactive Da te
--- OUTSIDE RECORDS SUMMARY | 2023-12-03 12:20 | XMS_ITS ---
Author Organization Unknown Address [address] [place] [phone] Phone Care Team Providers Care Rubber Trimmer Name Role Phone LENORE GONZALEZBARD BAKER Attending Unavail able CARLITOS Simeon Primary Unavailable Social History Type Status Start Date End Date Code Code Syst em Smoking History Current every day smoker [address] Sex Female Medications Medication Start [...] Status Code Code System ASTHMA 03/30/2023 resolved 646244289 SNOMED-CT Allergies and Adverse Reactions Allergy Substance Reaction Severity Start Date Concern Status Code Code System PENICILLINS (CLASS) Hives (SNOMED-CT: 164797759) Moderate Active 0867857 SNOMED-CT AMOXICILLIN Hives (SNOMED-CT: 678730977) Moderate Active 723 RxNorm Plan of Treatment US PELVIC / TV 06/12/2023 Encounters Encounter Diagnosis Start Date Code Code Sys tem Sleep apnea, unspecified 04/30/2023 SNO MED-CT Personal Care Team Section Performer Name Performer Role Active Date Inactive Da te
--- OUTSIDE RECORDS SUMMARY | 2023-12-03 12:20 | XMS_ITS ---
Author Organization Unknown Address [address] [place] [address] [phone] Phone Care Team Providers Care Rubber Press Operator Name Role Phone JOSE Bell Attending Unavailable CARLITOS Simeon Primary Unavailable Results US PELVIC TRANSVAGINAL* - Co mpleted: 06/12/2023 09:21 LOINC: [facility] [place], [place] [address] PACS LOOM TUNER REPORT Patient Name: KALYANI VELOZ Arabella MRN: Sex: : Age: [id number] F 1980 42 Account: Accession: Admit: StayType: [id number] 06/12/2023 O/P Ordered: Order ID: Submitted: Ordering Provider: 06/12/2023 08:45 [id number] KT RHONA GARCIA Completed: Technologist: Resulted: 06/12/2023 09:21 RXT 06/12/2023 12:51 Study Description: US PELVIC TRANSVAGINAL Study Reason: LT OVARIAN CYST TECHNIQUE: Ultrasound of the pelvis was performed both transabdominal and transvaginal. COMPARISON: Prior CT scan of 03/30/2023 was reviewed. Also reviewed prior ultrasound examination January 2019. FINDINGS: UTERUS: Nongravid and anteverted, measuring 9 cm length by 6.3 cm AP by 4.8 cm wide. There is a small anterior left of center myometrial fibroid measuring approximately 1.3 x 1.0 x 0.8 cm Endometrial thickness measures 15 mm. And mildly heterogeneous. There is no fluid in the endometrial canal. CERVIX: Few small nabothian cysts are noted. RIGHT OVARY: Appears unremarkable. Measures 4 x 4 x 2.2 cm No significant cysts nor masses evident in the right ovary. LEFT OVARY: Measures 2.7 x 2.3 x 2.1 cm Contains a single small cyst measuring 1.1 x 1.0 x 0.8 cm, most probably follicular. CUL-DE-SAC: No free fluid evident. IMPRESSION: 1. Thickened endometrium which measures 15 mm. 2. Single small anterior left of center uterine fibroid with measurements as above 3. Small benign-appearing 1.1 cm cyst in the left ovary which is most probably follicular. No free fluid. Report Digitally Signed by Bunny Bruce on 06/12/2023 12:51 PM EST Social History Type Status Start Date End Date Code Code Syst em Smoking History Current every day smoker [address] Sex Female Medications Medication Start Date [...] Status Code Code System ASTHMA 03/30/2023 resolved 699453774 SNOMED-CT Allergies and Adverse Reactions Allergy Substance Reaction Severity Start Date Concern Status Code Code System PENICILLINS (CLASS) Hives (SNOMED-CT: 568853519) Moderate Active 6182937 SNOMED-CT AMOXICILLIN Hives (SNOMED-CT: 119742128) Moderate Active 723 RxNorm Plan of Treatment US PELVIC / TV 06/12/2023 Encounters Encounter Diagnosis Start Date Code Code Sys tem 06/12/2023 [id number] SNOMED-CT Personal Care Team Section Performer Name Performer Role Active Date Inactive Da te
--- OUTSIDE RECORDS SUMMARY | 2023-12-03 12:20 | XMS_ITS ---
Author Organization Unknown Address [address] [place] [address] [phone] Phone Care Team Providers Care Belt Sewer Name Role Phone DOMONIQUEMICKI MELGOZA Arabella Attending Unavailable CARLITOS Simeon Primary Unavailable Social History Type Status Start Date End Date Code Code Syst em Smoking History Current every day smoker [address] Sex Female Medications Medication Start [...] Status Code Code System ASTHMA 03/30/2023 resolved 565082165 SNOMED-CT Allergies and Adverse Reactions Allergy Substance Reaction Severity Start Date Concern Status Code Code System PENICILLINS (CLASS) Hives (SNOMED-CT: 886158891) Moderate Active 1704013 SNOMED-CT AMOXICILLIN Hives (SNOMED-CT: 035965838) Moderate Active 723 RxNorm Plan of Treatment US PELVIC / TV 06/12/2023 Encounters Encounter Diagnosis Start Date Code Code Sys tem 04/18/2023 [id number] SNOMED-CT Personal Care Team Section Performer Name Performer Role Active Date Inactive Da te
--- OUTSIDE RECORDS SUMMARY | 2023-12-03 12:21 | XMS_ITS ---
Author Organization Unknown Address [address] [place] [address] [phone] Phone Care Team Providers Care Market Research Executive Name Role Phone MARYANNEIrinaKARLA ABBEY Attending Unavailable CARLITOS Simeon Primary Unavailable Social History Type Status Start Date End Date Code Code Syst em Smoking History Current every day smoker [address] Sex Female Medications Medication Start [...] Status Code Code System ASTHMA 03/30/2023 resolved 091174669 SNOMED-CT Allergies and Adverse Reactions Allergy Substance Reaction Severity Start Date Concern Status Code Code System PENICILLINS (CLASS) Hives (SNOMED-CT: 216246247) Moderate Active 5211568 SNOMED-CT AMOXICILLIN Hives (SNOMED-CT: 386946326) Moderate Active 723 RxNorm Plan of Treatment US PELVIC / TV 06/12/2023 Personal Care Team Section Performer Name Performer Role Active Date Inactive Da te
== END 2023-12-02 12:17 | disposition home or self-care (01) ==
LOC: NCHCN 12:16
PROVIDERS: PCP Nurse Practitioner Family; Visit Provider Nurse Practitioner Family
DX: Z12.4 Encounter for screening for malignant neoplasm of cervix (principal); Z11.51 Encounter for screening for human papillomavirus (HPV)
CPT/HCPCS: 88142; 87624

== ENCOUNTER 2023-12-06 10:38 | Outpatient (REF) | payer MEDICAID, SELFPAY ==
[2023-12-06 15:52] LABS: Calculated LDL 170 mg/dL (<100); Cholesterol 248 mg/dL (<200); HDL Cholesterol 53 mg/dL (40-60); Triglyceride 125 mg/dL (<150)
== END 2023-12-06 10:39 | disposition home or self-care (01) ==
LOC: NCHCN 10:38
PROVIDERS: PCP Nurse Practitioner Family; Visit Provider Nurse Practitioner Family
DX: E78.5 Hyperlipidemia, unspecified (principal)
CPT/HCPCS: 80061